=== PATIENT | male | born 1985 | race Caucasian/White ===

== ENCOUNTER 2016-06-27 16:17 | Emergency (ER) | payer OTHER ==
[2016-06-27 16:27] VITALS: BP 117/71; PULSE 84; RESP 18; TEMP 97.1
[2016-06-27] MEDS ORDERED: ACET/COD 300 MG/30 MG STARTER PACK 6 TAB BTL PO STA (16:36)
[2016-06-27] MEDS ORDERED: PENICILLIN VK 500MG STARTER 4 TAB BTL PO STA (16:36)
--- NOTE | 2016-06-27 16:41 | ED ---
ENT HPI - General Chief complaint: Dental/Oral Stated complaint: Tooth Ache Time Seen by Provider: 06/27/16 16:26 Source: patient, RN notes reviewed, old records reviewed Mode of arrival: ambulatory Limitations: no limitations - History of Present Illness Initial comments: Patient is a 30-year-old male with chief complaint of right lower tooth pain for approximately one week. Patient reports that he was eating steak one week ago when his back molar broke off. Tooth #31. Patient states that he's had a history of poor dentition. He states that he does not see a dentist regularly. Patient states that he was somewhat okay initially. He states that over the past 3 days his face has became more swollen and the pain is unmanageable Motrin Tylenol. Patient states that he tried to see a dentist today however they would not get him in. They recommended he come to be evaluated and get started on antibiotics for a dental abscess. Patient reports he's had intermittent fever. Denies any significant past medical history. She denies any difficulty opening and closing the jaw. Denies any trouble swallowing. Patient denies any recent fever, chills, shortness of breath, chest pain, back pain, abdominal pain, nausea vomiting, numbness or tingling, dysuria or hematuria, constipation or diarrhea, headaches or visual changes, or any other current symptoms - Related Data Previous Rx's Medication Instructions Recorded HYDROcodone/APAP 5-325MG [[place] 1 - 2 tab PO Q4H PRN #20 tab 06/27/16 5-325] Penicillin V Potassium [Pen Vee K] 500 mg PO QID #40 tab 06/27/16 Allergies Allergy/AdvReac Type Severity Reaction Status Date / Time No Known Allergies Allergy Verified 06/27/16 16:27 Review of Systems ROS Statement: Those systems with pertinent positive or pertinent negative responses have been documented in the HPI. ROS Other: All systems not noted in ROS Statement are negative. Past Medical History Past Medical History: No Reported History History of Any Multi-Drug Resistant Organisms: None Reported Past Surgical History: No Surgical Hx Reported Past Psychological History: No Psychological Hx Reported Smoking Status: Current every day smoker Past Alcohol Use History: None Reported Past Drug Use History: Marijuana General Exam - General Exam Comments Initial Comments: 30-year-old male. Patient doesn't appear to be in any acute distress. Limitations: no limitations General appearance: alert, in no apparent distress Head exam: Present: atraumatic, normocephalic, normal inspection Eye exam: Present: normal appearance, PERRL, EOMI. Absent: scleral icterus, conjunctival injection, periorbital swelling ENT exam: Present: normal exam, mucous membranes moist. Absent: normal oropharynx ( has exposed nerve root chipped tooth #31. Evidence of swelling erythema around the tooth. Patient has swelling over the cheek.) Neck exam: Present: normal inspection, lymphadenopathy (Tonsillar lymphadenopathy.) Respiratory exam: Present: normal lung sounds bilaterally. Absent: respiratory distress, wheezes, rales, rhonchi, stridor Cardiovascular Exam: Present: regular rate, normal rhythm, normal heart sounds. Absent: systolic murmur, diastolic murmur, rubs, gallop, clicks GI/Abdominal exam: Present: soft, normal bowel sounds. Absent: distended, tenderness, guarding, rebound, rigid Extremities exam: Present: normal inspection, full ROM, normal capillary refill. Absent: tenderness, pedal edema, joint swelling, calf tenderness Back exam: Present: normal inspection Neurological exam: Present: alert, oriented X3, CN II-XII intact Psychiatric exam: Present: normal affect, normal mood Skin exam: Present: warm, dry, intact, normal color. Absent: rash Course Vital Signs 06/27/16 16:26 Temperature 97.1 F L Pulse Rate 84 Respiratory 18 Rate Blood Pressure 117/71 O2 Sat by Pulse 98 Oximetry Medical Decision Making - Medical Decision Making Patient is a 30 year old male with one week of right lower dental pain. Patient has no fever at this time.Patient has exposed nerve root number 31, tonsillar lymphadenopathy, and redness and swelling over tooth. Patient will be started on penicillin and [place] for pain. Patient refused dental block at this time. I discussed close return parameters including severe swelling and worsening pain over the jaw. Patient reports he is following up with a dentist within the next 2-3 days to have the tooth removed. He just wants to start antibiotics. Patient agrees with treatment plan will comply. Return parameters were discussed. Disposition Clinical Impression: Pain, dental, Dental abscess Disposition: HOME SELF-CARE Condition: Good Instructions: Dental Abscess (ED) Additional Instructions: [facility] [address] [place] [address] [phone] (existing clients only) For new clients: [phone] 1st consult: $50 (includes Xrays) Usually 30% less then private dentist for visits after. [employer] Have to pay $50 for Xrays and rest is covered. [phone] Patient advised to complete entire antibiotic prescription. Return to the emergency department if any worsening signs or symptoms occur including unable to open and close jaw, or Severe swelling over the face. Prescriptions: HYDROcodone/APAP 5-325MG [[place] 5-325] 1 - 2 tab PO Q4H PRN #20 tab PRN Reason: Pain Penicillin V Potassium [Pen Vee K] 500 mg PO QID #40 tab Referrals: Jacki Vargas MD [STAFF PHYSICIAN] - 1-2 days Time of Disposition: 16:37
== END 2016-06-27 16:47 | disposition home or self-care (01) ==
LOC: EC 16:17
DX: K04.7 Periapical abscess without sinus (principal); F17.200 Nicotine dependence, unspecified, uncomplicated
CPT/HCPCS: 99283

== ENCOUNTER 2019-02-04 19:28 | Emergency (ER) | payer OTHER ==
[2019-02-04 19:39] VITALS: BP 156/91; PULSE 94; RESP 16; TEMP 97.9
[2019-02-04] MEDS ORDERED: ACET/COD 300 MG/30 MG STARTER PACK 6 TAB BTL PO STA (20:03)
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
== END 2019-02-04 20:12 | disposition home or self-care (01) ==
LOC: EC 19:28
DX: R20.2 Paresthesia of skin (principal); G89.29 Other chronic pain; M54.2 Cervicalgia; R20.0 Anesthesia of skin; F17.200 Nicotine dependence, unspecified, uncomplicated
CPT/HCPCS: 99283

== ENCOUNTER 2019-05-30 05:55 | Emergency (ER) | payer OTHER ==
[2019-05-30 06:01] VITALS: BP 170/89; PULSE 89; RESP 20; TEMP 97.9
[2019-05-30] MEDS ORDERED: ACET/COD 300 MG/30 MG STARTER PACK 6 TAB BTL PO STA (06:13)
[2019-05-30] MEDS ORDERED: HYDROcodone/APAP 5-325MG 1 EACH TAB PO STA (06:13)
--- NOTE | 2019-05-30 06:13 | ED ---
Skin/Abscess/FB HPI - General Chief complaint: Skin/Abscess/Foreign Body Stated complaint: Cyst/Boil on Neck Time Seen by Provider: 05/30/19 06:02 Source: patient, family, RN notes reviewed Mode of arrival: ambulatory Limitations: no limitations - History of Present Illness Initial comments: 33-year-old male presents emergency Department chief complaint of cyst on left posterior neck region. Patient states started last day. Patient states he had a small pimple-like structure states he tried to pop it multiple times. Patient states now painful, swollen. Patient denies any fevers or chills. Patient denies any headache, dizziness, chest pain or shortness of breath. - Related Data Previous Rx's Medication Instructions Recorded HYDROcodone/APAP 5-325MG [[place] 1 - 2 tab PO Q4H PRN #20 tab 06/27/16 5-325] Penicillin V Potassium [Pen Vee K] 500 mg PO QID #40 tab 06/27/16 Cephalexin [Keflex] 500 mg PO Q6HR #40 cap 05/30/19 Ibuprofen [Motrin] 600 mg PO Q8HR PRN #20 tab 05/30/19 Sulfamethox-Tmp 800-160Mg [Bactrim 1 each PO Q12HR #20 tab 05/30/19 Ds] Allergies Allergy/AdvReac Type Severity Reaction Status Date / Time No Known Allergies Allergy Verified 05/30/19 06:01 Review of Systems ROS Statement: Those systems with pertinent positive or pertinent negative responses have been documented in the HPI. ROS Other: All systems not noted in ROS Statement are negative. Past Medical History Past Medical History: No Reported History History of Any Multi-Drug Resistant Organisms: None Reported Past Surgical History: No Surgical Hx Reported Past Psychological History: No Psychological Hx Reported Smoking Status: Current every day smoker Past Alcohol Use History: None Reported Past Drug Use History: Marijuana General Exam Limitations: no limitations General appearance: alert, in no apparent distress Head exam: Present: atraumatic, normocephalic, normal inspection Eye exam: Present: normal appearance, PERRL, EOMI. Absent: scleral icterus, conjunctival injection, periorbital swelling ENT exam: Present: normal exam, normal oropharynx, mucous membranes moist, TM's normal bilaterally, normal external ear exam Neck exam: Present: full ROM. Absent: normal inspection (Firm nonfluctuant 1 cm abscess left posterior neck region), tenderness, meningismus, lymphadenopathy Respiratory exam: Present: normal lung sounds bilaterally. Absent: respiratory distress, wheezes, rales, rhonchi, stridor Cardiovascular Exam: Present: regular rate, normal rhythm, normal heart sounds. Absent: systolic murmur, diastolic murmur, rubs, gallop, clicks Course Vital Signs 05/30/19 05:57 Temperature 97.9 F Pulse Rate 89 Respiratory 20 Rate Blood Pressure 170/89 O2 Sat by Pulse 100 Oximetry Medical Decision Making - Medical Decision Making Patient has abscess that is nonfluctuant to left posterior neck region this appears to be related to ingrown hair this time. Patient was placed on advised warm compresses. Return parameters discussed. Disposition Clinical Impression: Neck abscess, Hair follicle infection Disposition: HOME SELF-CARE Condition: Stable Instructions (If sedation given, give patient instructions): Abscess (ED) Additional Instructions: Please return to the Emergency Department if symptoms worsen or any other concerns. Prescriptions: Sulfamethox-Tmp 800-160Mg [Bactrim Ds] 1 each PO Q12HR #20 tab Cephalexin [Keflex] 500 mg PO Q6HR #40 cap Ibuprofen [Motrin] 600 mg PO Q8HR PRN #20 tab PRN Reason: Pain Is patient prescribed a controlled substance at d/c from ED?: No Referrals: None,Stated [Primary Care Provider] - 1-2 days Time of Disposition: 06:12
== END 2019-05-30 06:26 | disposition home or self-care (01) ==
LOC: EC 05:55
DX: L02.11 Cutaneous abscess of neck (principal); L73.8 Other specified follicular disorders; F17.200 Nicotine dependence, unspecified, uncomplicated
CPT/HCPCS: 99283

== ENCOUNTER 2019-06-01 23:24 | Emergency (ER) | payer OTHER ==
[2019-06-01 23:30] VITALS: BP 122/87; PULSE 108; RESP 18; TEMP 97.5
[2019-06-02] MEDS ORDERED: oxyCODONE-APAP 7.5-325MG 1 EACH TAB PO STA (00:06)
--- NOTE | 2019-06-02 00:08 | ED ---
Skin/Abscess/FB HPI - General Chief complaint: Skin/Abscess/Foreign Body Stated complaint: Neck pain Time Seen by Provider: 06/01/19 23:34 Source: patient Mode of arrival: ambulatory Limitations: physical limitation - History of Present Illness Initial comments: 33-year-old male presents for recheck of abscess. Patient states approximately 100 hours ago he noticed a bump on the back of the left side of his neck. Patient states it has become more tender and painful. Patient states 2 days ago he presents emergency department when he was prescribed 2 antibiotics, he states that it does not seem to be helping. Patient denies any fevers, nightsweats. Patient states the location of the abscess causes pain when he moves neck. Patient denies pain of the neck bones, neck stiffness. Denies MRSA history. Patient states he has been taking keflex and bactrim for the past day. Patient has no other complaints. patient states that he could not tolerate the pain and thats why he presented to the ER, he states it has not really increased in size. Remaining ROS (-). Afebrile on arrival. - Related Data Previous Rx's Medication Instructions Recorded HYDROcodone/APAP 5-325MG [[place] 1 - 2 tab PO Q4H PRN #20 tab 06/27/16 5-325] Penicillin V Potassium [Pen Vee K] 500 mg PO QID #40 tab 06/27/16 Ibuprofen [Motrin] 600 mg PO Q8HR PRN #20 tab 05/30/19 Sulfamethox-Tmp 800-160Mg [Bactrim 1 each PO Q12HR #20 tab 05/30/19 Ds] HYDROcodone/APAP 5-325MG [[place] 1 tab PO Q6HR PRN 3 Days #12 tab 06/02/19 5-325] Allergies Allergy/AdvReac Type Severity Reaction Status Date / Time No Known Allergies Allergy Verified 06/01/19 23:31 Review of Systems ROS Statement: Those systems with pertinent positive or pertinent negative responses have been documented in the HPI. ROS Other: All systems not noted in ROS Statement are negative. Past Medical History Past Medical History: No Reported History History of Any Multi-Drug Resistant Organisms: None Reported Past Surgical History: No Surgical Hx Reported Past Psychological History: No Psychological Hx Reported Smoking Status: Current every day smoker Past Alcohol Use History: None Reported Past Drug Use History: Marijuana General Exam - General Exam Comments Initial Comments: General: The patient is awake and alert, in no distress, and does not appear acutely ill. Eye: Pupils are equal, round and reactive to light, extra-ocular movements are intact. No nystagmus. There is normal conjunctiva bilaterally. No signs of icterus. Ears, nose, mouth and throat: There are moist mucous membranes and no oral lesions. Neck: The neck is supple, there is no tenderness or JVD. on left side posterior neck there is a [id number] area of induration with small area of necrotic center. No significant surrounding redness, no spontaneous drainage. Musculoskeletal: Normal ROM, no tenderness. Strength 5/5. Sensation intact. Radial pulses equal bilaterally 2+. Neurological: A&O x 3. CN II-XII intact grossly, There are no obvious motor or sensory deficits. Coordination appears grossly intact. Speech is normal. Skin: Skin is warm and dry and no rashes or lesions are noted. Psychiatric: Cooperative, appropriate mood & affect, normal judgment. Limitations: physical limitation Course Vital Signs 06/01/19 23:26 Temperature 97.5 F L Pulse Rate 108 H Respiratory 18 Rate Blood Pressure 122/87 O2 Sat by Pulse 99 Oximetry Procedures - Incision & Drainage Consent Obtained: verbal consent Indication: abscess Site: neck Size (cm): 2 Anesthetic Used: lidocaine 1% Amount (mLs): 2 I&D Cleaning Method: Iodine Sterile Field Used?: No Scalpel Used: #11 Needle Aspiration Performed?: No Irrigation Performed?: No I&D Drainage Obtained: Blood Culture Obtained?: No Complications: pain Medical Decision Making - Medical Decision Making 33yo male presenting today for cc of neck abscess. I&D attempted no drainage. Mostly induration, Patient evaluated by Dr. Munoz who is agreeable that at this time area is indurated without purulent drainage. Patient given medications for pain management in the ER. Recommended warm compressions with continued antibiotics regime. Strict return parameters for increasing pain, fever, general mailase. Recommended surgical consultation. Patient agreeable to care plan and discharge at this time. Disposition Clinical Impression: Abscess Disposition: HOME SELF-CARE Condition: Good Instructions (If sedation given, give patient instructions): Abscess Incision and Drainage (ED), Cyst (ED) Additional Instructions: Please use medication as discussed. Please follow-up with family doctor in the next 2 days, and general surgery in next 2-3 days--call tomorrow to make appointment. Please return to emergency room if the symptoms increase or worsen or for any other concerns. Prescriptions: HYDROcodone/APAP 5-325MG [[place] 5-325] 1 tab PO Q6HR PRN 3 Days #12 tab PRN Reason: Pain Is patient prescribed a controlled substance at d/c from ED?: No Referrals: None,Stated [Primary Care Provider] - 1-2 days Dandre Platt MD [STAFF PHYSICIAN] - 1-2 days Time of Disposition: 00:07
== END 2019-06-02 00:38 | disposition home or self-care (01) ==
LOC: EC 23:24
DX: L02.11 Cutaneous abscess of neck (principal); F17.200 Nicotine dependence, unspecified, uncomplicated
CPT/HCPCS: 10060; 99283

== ENCOUNTER 2019-06-12 19:05 | Emergency (ER) | payer OTHER ==
[2019-06-12 19:12] VITALS: BP 149/90; PULSE 100; RESP 20; TEMP 98
[2019-06-12] MEDS ORDERED: ETODOLAC 400 MG TAB PO STA (20:00)
--- NOTE | 2019-06-12 20:11 | ED ---
General Adult HPI - General Chief complaint: Skin/Abscess/Foreign Body Stated complaint: Neck pain Time Seen by Provider: 06/12/19 19:23 Source: patient, RN notes reviewed, old records reviewed Mode of arrival: ambulatory Limitations: no limitations - History of Present Illness Initial comments: 33-year-old male patient with past history of hypertension presents to ED for evaluation of possible spider bite on neck. Patient reports that on 05/29 which is bit by a spider. Both on his neck and on his leg. Patient was seen emergency department 2 times on 05/29 and 05/31 at that time there is no mention of a spider bite. Patient does report that he believes he could have been by a brown recluse. Patient had incision and drainage performed on 05/31. Since then he states he has had purulent drainage. Reports that it does appear to be improving. However today patient woke up with pain around the area of the potential bite or abscess. Denies any fevers, denies any other complaints. Systemic: Pt denies fatigue, fever/chills, rash. Pt denies weakness, night sweats, weight loss. Neuro: Pt denies headache, visual disturbances, syncope or pre-syncope. HEENT: Pt denies ocular discharge or irritation, otalgia, rhinorrhea, pharyngitis or notable lymphadenopathy. Cardiopulmonary: Pt denies chest pain, SOB, heart palpitations, dyspnea on exertion. Abdominal/GI: Pt denies abdominal pain, n/v/d. : Pt denies dysuria, burning w/ urination, frequency/urgency. Denies new onset urinary or bowel incontinence. MSK: Pt denies myalgia, loss of strength or function in extremities. Neuro: Pt denies new onset weakness, paresthesias. - Related Data Previous Rx's Medication Instructions Recorded HYDROcodone/APAP 5-325MG [[place] 1 - 2 tab PO Q4H PRN #20 tab 06/27/16 5-325] Penicillin V Potassium [Pen Vee K] 500 mg PO QID #40 tab 06/27/16 Ibuprofen [Motrin] 600 mg PO Q8HR PRN #20 tab 05/30/19 Sulfamethox-Tmp 800-160Mg [Bactrim 1 each PO Q12HR #20 tab 05/30/19 Ds] HYDROcodone/APAP 5-325MG [[place] 1 tab PO Q6HR PRN 3 Days #12 tab 06/02/19 5-325] Cephalexin [Keflex] 500 mg PO Q6HR 7 Days #28 cap 06/12/19 Allergies Allergy/AdvReac Type Severity Reaction Status Date / Time No Known Allergies Allergy Verified 06/12/19 19:12 Review of Systems ROS Statement: Those systems with pertinent positive or pertinent negative responses have been documented in the HPI. ROS Other: All systems not noted in ROS Statement are negative. Past Medical History Past Medical History: No Reported History History of Any Multi-Drug Resistant Organisms: None Reported Past Surgical History: No Surgical Hx Reported Past Psychological History: No Psychological Hx Reported Smoking Status: Current every day smoker Past Alcohol Use History: None Reported Past Drug Use History: Marijuana General Exam - General Exam Comments Initial Comments: Constitutional: NAD, AOX3, Pt has pleasant affect. HEENT: NC/AT, trachea midline, neck supple, no lymphadenopathy. Posterior pharynx non erythematous, without exudates. External ears appear normal, without discharge. Mucous membranes moist. Eyes PERRLA, EOM intact. There is no scleral icterus. No pallor noted. Cardiopulmonary: RRR, no murmurs, rubs or gallops, no JVD noted. Lungs CTAB in anterior and posterior villa. No peripheral edema. Neuro: CN II-XII grossly intact. No nuchal rigidity. No raccon eyes, no estes sign, no hemotympanum. No cervical spinal tenderness. Kernig's and Brudzinski's is negative. MSK: 1 x 1 cm lesion, 1cm deep left posterior cervical region. Rimmed with very mild erythema, or fluctuance or drainage is noted. No crepitus. 1 cm hard crusted lesion right anterior tibial region. Rimmed with very mild erythema, or fluctuance or drainage is noted. No crepitus. No erythema or fluctuance discharge noted. Full active ROM in upper and lower extremities, 5/5 stregnth. Limitations: no limitations Course Vital Signs 06/12/19 19:08 Temperature 98 F Pulse Rate 100 Respiratory 20 Rate Blood Pressure 149/90 O2 Sat by Pulse 98 Oximetry Medical Decision Making - Medical Decision Making 33-year-old male patient with past history of hypertension presents to ED for evaluation of possible spider bite on neck. Patient reports that on 05/29 which is bit by a spider. Both on his neck and on his leg. Patient was seen emergency department 2 times on 05/29 and 05/31 at that time there is no mention of a spider bite. Patient does report that he believes he could have been by a brown recluse. Patient had incision and drainage performed on 05/31. Since then he states he has had purulent drainage. Reports that it does appear to be improving. However today patient woke up with pain around the area of the potential bite or abscess. Denies any fevers, denies any other complaints.Pt VSS, afebrile. Physical exam displayed: 1 x 1 cm lesion, 1cm deep left posterior cervical region. No erythema or fluctuance or drainage is noted. No crepitus. 1 cm hard crusted lesion right anterior tibial region. Patient will be continued on Keflex will be prescribed one additional week. Will be given outpatient referral for a general surgeon. Follow with primary care provider tomorrow. Will return to ER if condition worsens in any way. Case discussed and pt seen by Dr. De Oliveira. Disposition Clinical Impression: Chronic wound of extremity, Skin lesion of neck Disposition: HOME SELF-CARE Condition: Stable Instructions (If sedation given, give patient instructions): Chronic Wound Care (ED) Additional Instructions: Take antibiotics as directed. Follow-up with primary care provider as well as g eneral surgeon consult tomorrow. Use Tylenol and Motrin as needed for pain. Keep area clean and dry. Return to ER if condition worsens, if you start developing fevers or any other concerning symptoms develop. Prescriptions: Cephalexin [Keflex] 500 mg PO Q6HR 7 Days #28 cap Is patient prescribed a controlled substance at d/c from ED?: No Referrals: None,Stated [Primary Care Provider] - 1-2 days [facility] [NON[facility]] - 1-2 days Silas Sabillon MD [Medical Doctor] - 1-2 days
== END 2019-06-12 20:32 | disposition home or self-care (01) ==
LOC: EC 19:05
DX: S81.801A Unspecified open wound, right lower leg, initial encounter (principal); L98.9 Disorder of the skin and subcutaneous tissue, unspecified; F17.200 Nicotine dependence, unspecified, uncomplicated; W57.XXXA Bitten or stung by nonvenomous insect and other nonvenomous arthropods, initial encounter
CPT/HCPCS: 99283

== ENCOUNTER 2019-09-22 20:15 | Emergency (ER) | payer OTHER ==
[2019-09-22 20:20] VITALS: BP 158/107; PULSE 100; RESP 16; TEMP 98.4
[2019-09-22] MEDS ORDERED: SULFAMETH-TMP DS STARTER PACK 2 TAB BTL PO STA (20:44)
[2019-09-22] MEDS ORDERED: CEPHALEXIN 500MG STARTER PACK 4 CAP BTL PO STA (20:44)
--- NOTE | 2019-09-22 20:44 | ED ---
General Adult HPI - General Chief complaint: Skin/Abscess/Foreign Body Stated complaint: Poss Bug Bite Time Seen by Provider: 09/22/19 20:24 Source: patient, RN notes reviewed Mode of arrival: ambulatory - History of Present Illness Initial comments: 34-year-old male without any significant past medical history aside from hypertension presents to the emergency department for abscess on the abdomen. Patient states he started have a lump on his abdomen and now there is redness around it. Patient states he had a similar problem earlier this year with an abscess on his neck. Patient unknown if he has a history of MRSA. Patient states his abscess started about 3 days ago. States it is draining. No fevers or chills. No abdominal pain.Patient has no other complaints at this time including shortness of breath, chest pain, abdominal pain, nausea or vomiting, headache, or visual changes. - Related Data Previous Rx's Medication Instructions Recorded HYDROcodone/APAP 5-325MG [[place] 1 - 2 tab PO Q4H PRN #20 tab 06/27/16 5-325] Penicillin V Potassium [Pen Vee K] 500 mg PO QID #40 tab 06/27/16 Ibuprofen [Motrin] 600 mg PO Q8HR PRN #20 tab 05/30/19 Sulfamethox-Tmp 800-160Mg [Bactrim 1 each PO Q12HR #20 tab 05/30/19 Ds] HYDROcodone/APAP 5-325MG [[place] 1 tab PO Q6HR PRN 3 Days #12 tab 06/02/19 5-325] Acetaminophen Tab [Tylenol Tab] 500 mg PO Q6H PRN #20 tablet 06/12/19 Cephalexin [Keflex] 500 mg PO Q6HR 7 Days #28 cap 06/12/19 Ibuprofen [Motrin] 600 mg PO Q6HR PRN #20 day 06/12/19 Cephalexin [Keflex] 500 mg PO QID 10 Days #40 cap 09/22/19 Sulfamethox-Tmp 800-160Mg [Bactrim 1 tab PO Q12HR #20 tab 09/22/19 DS 800-160 mg] Allergies Allergy/AdvReac Type Severity Reaction Status Date / Time No Known Allergies Allergy Verified 09/22/19 20:20 Review of Systems ROS Statement: Those systems with pertinent positive or pertinent negative responses have been documented in the HPI. ROS Other: All systems not noted in ROS Statement are negative. Past Medical History Past Medical History: Hypertension History of Any Multi-Drug Resistant Organisms: None Reported Past Surgical History: No Surgical Hx Reported Additional Past Surgical History / Comment(s): Rhinoplasty Past Psychological History: No Psychological Hx Reported Smoking Status: Current every day smoker Past Alcohol Use History: None Reported Past Drug Use History: Marijuana General Exam General appearance: alert, in no apparent distress Head exam: Present: atraumatic, normocephalic, normal inspection Eye exam: Present: normal appearance, PERRL, EOMI. Absent: scleral icterus, conjunctival injection, periorbital swelling ENT exam: Present: normal exam, mucous membranes moist Neck exam: Present: normal inspection. Absent: tenderness, meningismus, lymphadenopathy Respiratory exam: Present: normal lung sounds bilaterally. Absent: respiratory distress, wheezes, rales, rhonchi, stridor Cardiovascular Exam: Present: regular rate, normal rhythm, normal heart sounds. Absent: systolic murmur, diastolic murmur, rubs, gallop, clicks GI/Abdominal exam: Present: soft, normal bowel sounds, other (Patient has a small 1 cm x 1 cm abscess noted to the right of the umbilicus that is currently draining. He has no abdominal tenderness. He does have surrounding erythema about 6 cm x 6 cm consistent with cellulitis.). Absent: distended, tenderness, guarding, rebound, rigid Course Vital Signs 09/22/19 20:16 Temperature 98.4 F Pulse Rate 100 Respiratory 16 Rate Blood Pressure 158/107 O2 Sat by Pulse 99 Oximetry Medical Decision Making - Medical Decision Making Abscess is already draining, there is no fluctuant area for additional incision point. He will continue to do warm compresses. He will be treated with Keflex and Bactrim to cover for possible MRSA as patient has had a history of abscesses. Patient will follow-up with his doctor. He will return here for any worsening symptoms which were discussed in depth with him. Disposition Clinical Impression: Abscess Disposition: HOME SELF-CARE Condition: Good Instructions (If sedation given, give patient instructions): Cellulitis (ED), Abscess (ED) Additional Instructions: Please take antibiotics as directed. Try warm compresses several times daily. Monitor for worsening symptoms. Symptoms may worsen a small amount in the next 24 hours but if they worsen significantly return to the emergency room. If it is not improving after 24-48 hours of antibiotics return to the emergency room. Otherwise follow-up with primary care in 1-2 days for a recheck. Prescriptions: Sulfamethox-Tmp 800-160Mg [Bactrim DS 800-160 mg] 1 tab PO Q12HR #20 tab Cephalexin [Keflex] 500 mg PO QID 10 Days #40 cap Is patient prescribed a controlled substance at d/c from ED?: No Referrals: Johnnie Sena MD [STAFF PHYSICIAN] - 1-2 days Time of Disposition: 20:43
== END 2019-09-22 20:58 | disposition home or self-care (01) ==
LOC: EC 20:15
DX: L02.211 Cutaneous abscess of abdominal wall (principal); F17.200 Nicotine dependence, unspecified, uncomplicated
CPT/HCPCS: 99283

== ENCOUNTER 2019-12-11 15:53 | Emergency (ER) | payer OTHER ==
[2019-12-11 16:12] VITALS: RESP 18
[2019-12-11] MEDS ORDERED: HYDROcodone/APAP 7.5-325MG 1 EACH TAB PO ONE (16:35)
[2019-12-11 16:59] LABS: Basophils # (A) 0.1 k/uL (0-0.2); Basophils % (A) 1 %; Eosinophils # (A) 0.6 k/uL (0-0.7); Eosinophils % (A) 5 %; HGB 17.4 gm/dL (13.0-17.5); Lymphocytes # (A) 2.9 k/uL (1.0-4.8); Lymphocytes % (A) 24 %; MCH 34.2 pg (25.0-35.0); MCHC 35.5 g/dL (31.0-37.0); MCV 96.6 fL (80.0-100.0); Mean Platelet Volume 6.2; Monocytes # (A) 0.7 k/uL (0-1.0); Monocytes % (A) 6 %; Neutrophils # (A) 7.3 k/uL (1.3-7.7); Neutrophils % (A) 62 %; Platelet Count 448 k/uL (150-450); RBC 5.07 m/uL (4.30-5.90); RDW 11.9 % (11.5-15.5); WBC 11.9 k/uL (3.8-10.6)
[2019-12-11 17:07] LABS: ALT 14 U/L (4-49); AST 30 U/L (17-59); African American GFR (CKD) >90 (>60 ml/min/1.73 sqM); Albumin 4.8 g/dL (3.5-5.0); Alkaline Phosphatase 98 U/L (38-126); Anion Gap 9 mmol/L; Blood Urea Nitrogen 20 mg/dL (9-20); Calcium 9.8 mg/dL (8.4-10.2); Carbon Dioxide 26 mmol/L (22-30); Chloride 104 mmol/L (98-107); Glucose 97 mg/dL (74-99); Non-African American GFR(CKD) 78 (>60 ml/min/1.73 sqM); Potassium 4.3 mmol/L (3.5-5.1); Sodium 139 mmol/L (137-145); Total Bilirubin 0.6 mg/dL (0.2-1.3); Total Protein 7.9 g/dL (6.3-8.2)
--- NOTE | 2019-12-11 17:17 | US ---
EXAMINATION TYPE: US extremity nonvasc mass RT DATE OF EXAM: 12/11/2019 COMPARISON: NONE CLINICAL HISTORY: right wrist, ensure no vascular communication. redness and lump right wrist Scanned right wrist within area of concern, complex anechoic area = 1.0 x 0.5 x 0.9cm IMPRESSION: There is irregular somewhat oval-shaped hypoechoic complex fluid collection in the area o f concern on the right wrist. This could be an abscess or hematoma.
[2019-12-11] MEDS ORDERED: LIDOCAINE 1% INJ 10MG/ML (20 ML MDV) SQ ONE (17:34)
[2019-12-11] MEDS ORDERED: CLINDAMYCIN 150 MG CAP PO STA (17:48)
[2019-12-11 17:57] VITALS: BP 152/105; PULSE 87; TEMP 98
--- NOTE | 2019-12-11 17:57 | ED ---
Skin/Abscess/FB HPI - General Chief complaint: Skin/Abscess/Foreign Body Stated complaint: abcess on right arm Time Seen by Provider: 12/11/19 16:30 Source: patient Mode of arrival: ambulatory Limitations: no limitations - History of Present Illness Initial comments: 34-year-old male presenting today for chief complaint of right forearm abscess, possible infection of tattoo site. Patient states that the area around the tattoo is red and hurts to touch. He denies any drainage. Patient states his scabbing. Patient states that he does also have this raised bump on the right forearm he states that it has been draining somewhat he was concerned of a bscess. He states that he was poked by something. He denies IV drug use. Patient denies known history of MRSA. Patient denies fever, chills, general malaise or additional complaints pt appears well on arrival nontoxic. - Related Data Previous Rx's Medication Instructions Recorded HYDROcodone/APAP 5-325MG [[place] 1 - 2 tab PO Q4H PRN #20 tab 06/27/16 5-325] Penicillin V Potassium [Pen Vee K] 500 mg PO QID #40 tab 06/27/16 Ibuprofen [Motrin] 600 mg PO Q8HR PRN #20 tab 05/30/19 Sulfamethox-Tmp 800-160Mg [Bactrim 1 each PO Q12HR #20 tab 05/30/19 Ds] HYDROcodone/APAP 5-325MG [[place] 1 tab PO Q6HR PRN 3 Days #12 tab 06/02/19 5-325] Acetaminophen Tab [Tylenol Tab] 500 mg PO Q6H PRN #20 tablet 06/12/19 Cephalexin [Keflex] 500 mg PO Q6HR 7 Days #28 cap 06/12/19 Ibuprofen [Motrin] 600 mg PO Q6HR PRN #20 day 06/12/19 Cephalexin [Keflex] 500 mg PO QID 10 Days #40 cap 09/22/19 Sulfamethox-Tmp 800-160Mg [Bactrim 1 tab PO Q12HR #20 tab 09/22/19 DS 800-160 mg] Cephalexin [Keflex] 500 mg PO Q6HR 7 Days #28 cap 12/11/19 Sulfamethox-Tmp 800-160Mg [Bactrim 1 tab PO Q12HR 7 Days #14 tab 12/11/19 DS 800-160 mg] Allergies Allergy/AdvReac Type Severity Reaction Status Date / Time No Known Allergies Allergy Verified 09/22/19 20:20 Review of Systems ROS Statement: Those systems with pertinent positive or pertinent negative responses have been documented in the HPI. ROS Other: All systems not noted in ROS Statement are negative. Past Medical History Past Medical History: Hypertension History of Any Multi-Drug Resistant Organisms: None Reported Past Surgical History: No Surgical Hx Reported Additional Past Surgical History / Comment(s): Rhinoplasty Past Psychological History: No Psychological Hx Reported Smoking Status: Current every day smoker Past Alcohol Use History: None Reported Past Drug Use History: Marijuana General Exam - General Exam Comments Initial Comments: General: The patient is awake and alert, in no distress Eye: +3 mm pupils are equal, round and reactive to light, extra-ocular movements are intact. No nystagmus. There is normal conjunctiva bilaterally. No signs of icterus. Ears, nose, mouth and throat: There are moist mucous membranes and no oral lesions. Neck: The neck is supple, there is no tenderness or JVD. Cardiovascular: There is a regular rate and rhythm. No murmur, rub or gallop is appreciated. Respiratory: Lungs are clear to auscultation, respirations are non-labored, breath sounds are equal. No wheezes, stridor, rales, or rhonchi. Gastrointestinal: Soft, non-distended, non-tender abdomen without masses or organomegaly noted. There is no rebound or guarding present. Musculoskeletal: Normal ROM, no tenderness. Strength 5/5. Sensation intact. Radial pulses equal bilaterally 2+. Neurological: A&O x 3. CN II-XII intact grossly, There are no obvious motor or sensory deficits. Coordination appears grossly intact. Speech is normal. Skin: Skin is warm and dry and no rashes.2x1.5 raised red tender area of ulnar aspect of the right side of distal forearm, small area of center that appears open no acute drainage. Tattoo of the right lower leg, redness, scabbing, no drainage, blistering Psychiatric: Cooperative, appropriate mood & affect, normal judgment. Limitations: no limitations Course Vital Signs 12/11/19 12/11/19 16:06 17:56 Temperature 99.0 F 98.0 F Pulse Rate 114 H 87 Respiratory 18 18 Rate Blood Pressure 139/92 152/105 O2 Sat by Pulse 99 98 Oximetry Medical Decision Making - Medical Decision Making refused I &D although i discussed that the infection would most likely worsening without it as this is abscess and that is the treatment. pt states that he would like to trial antibiotics. Patient was on clindamycin taking his previous old a ntibiotics for the past 2 days he states that he does not believe is working patient was switched from clindamycin to Keflex and Bactrim. Patient is to return for worsening pain swelling redness fevers chills general malaise. Patient cellulitis of the tattoo site appears very mild evidence of abscess in that area. Patient case discussed attending provider Dr. Carrasco who is agreeable to care plan. - Lab Data Result diagrams: 12/11/19 16:47 12/11/19 16:47 Lab Results 12/11/19 12/11/19 12/11/19 Range/Units 16:47 16:47 16:47 WBC 11.9 H (3.8-10.6) k/uL RBC 5.07 (4.30-5.90) m/uL Hgb 17.4 (13.0-17.5) gm/dL Hct 49.0 (39.0-53.0) % MCV 96.6 (80.0-100.0) fL MCH 34.2 (25.0-35.0) pg MCHC 35.5 (31.0-37.0) g/dL RDW 11.9 (11.5-15.5) % Plt Count 448 (150-450) k/uL Neutrophils % 62 % Lymphocytes % 24 % Monocytes % 6 % Eosinophils % 5 % Basophils % 1 % Neutrophils # 7.3 (1.3-7.7) k/uL Lymphocytes # 2.9 (1.0-4.8) k/uL Monocytes # 0.7 (0-1.0) k/uL Eosinophils # 0.6 (0-0.7) k/uL Basophils # 0.1 (0-0.2) k/uL Sodium 139 (137-145) mmol/L Potassium 4.3 (3.5-5.1) mmol/L Chloride 104 (98-107) mmol/L Carbon Dioxide 26 (22-30) mmol/L Anion Gap 9 mmol/L BUN 20 (9-20) mg/dL Creatinine 1.19 (0.66-1.25) mg/dL Est GFR (CKD-EPI)AfAm >90 (>60 ml/min/1.73 sqM) Est GFR (CKD-EPI)NonAf 78 (>60 ml/min/1.73 sqM) Glucose 97 (74-99) mg/dL Plasma Lactic Acid Cory 0.9 (0.7-2.0) mmol/L Calcium 9.8 (8.4-10.2) mg/dL Total Bilirubin 0.6 (0.2-1.3) mg/dL AST 30 (17-59) U/L ALT 14 (4-49) U/L Alkaline Phosphatase 98 (38-126) U/L Total Protein 7.9 (6.3-8.2) g/dL Albumin 4.8 (3.5-5.0) g/dL Disposition Clinical Impression: Abscess, Cellulitis Disposition: HOME SELF-CARE Condition: Good Instructions (If sedation given, give patient instructions): Cellulitis (ED), Abscess (ED) Additional Instructions: Please use medication as discussed. Please follow-up with family doctor in the next 2 days. Please return to emergency room if the symptoms increase or worsen or for any other concerns. Prescriptions: Sulfamethox-Tmp 800-160Mg [Bactrim DS 800-160 mg] 1 tab PO Q12HR 7 Days #14 tab Cephalexin [Keflex] 500 mg PO Q6HR 7 Days #28 cap Is patient prescribed a controlled substance at d/c from ED?: No Referrals: None,Stated [Primary Care Provider] - 1-2 days Time of Disposition: 17:57
[2019-12-11] MEDS ORDERED: SULFAMETH-TMP DS STARTER PACK 2 TAB BTL PO STA (18:07)
[2019-12-11] MEDS ORDERED: CEPHALEXIN 500MG STARTER PACK 4 CAP BTL PO STA (18:07)
== END 2019-12-11 18:14 | disposition home or self-care (01) ==
LOC: EC 15:53
DX: L02.413 Cutaneous abscess of right upper limb (principal); L03.113 Cellulitis of right upper limb; F17.200 Nicotine dependence, unspecified, uncomplicated
CPT/HCPCS: 36415; 80053; 83605; 85025; 87040; 99283

== ENCOUNTER 2020-03-05 01:15 | Emergency (ER) | payer OTHER ==
[2020-03-05 01:21] VITALS: BP 154/97; PULSE 109; RESP 18; TEMP 98.5
[2020-03-05] MEDS ORDERED: LIDOCAINE 1%-EPI 1:100,000 20 ML VIAL SQ STA (01:50)
--- NOTE | 2020-03-05 01:53 | ED ---
Skin/Abscess/FB HPI - General Chief complaint: Skin/Abscess/Foreign Body Stated complaint: RT leg pain Time Seen by Provider: 03/05/20 01:44 Source: patient Mode of arrival: ambulatory Limitations: no limitations - History of Present Illness Initial comments: 34-year-old male presenting to the emergency department with a chief complaint of leg infection. Patient states several days ago he was working outside when a winch hit him on the right lower leg. Patient reports it was some ecchymosis in the region and now he has developed a localized infection to the anterior aspect of the right lower extremity. Patient states that it is tender to palpation and he has noticed some discharge yesterday but not today. Denies any night sweats or chills. States he has taken 6 tablets of 150 mg of clindamycin that was prescribed to him quite some time ago for a different reason. States his tetanus is up-to-date. Denies history of MRSA. - Related Data Previous Rx's Medication Instructions Recorded HYDROcodone/APAP 5-325MG [[place] 1 - 2 tab PO Q4H PRN #20 tab 06/27/16 5-325] Penicillin V Potassium [Pen Vee K] 500 mg PO QID #40 tab 06/27/16 Ibuprofen [Motrin] 600 mg PO Q8HR PRN #20 tab 05/30/19 Sulfamethox-Tmp 800-160Mg [Bactrim 1 each PO Q12HR #20 tab 05/30/19 Ds] HYDROcodone/APAP 5-325MG [[place] 1 tab PO Q6HR PRN 3 Days #12 tab 06/02/19 5-325] Acetaminophen Tab [Tylenol Tab] 500 mg PO Q6H PRN #20 tablet 06/12/19 Cephalexin [Keflex] 500 mg PO Q6HR 7 Days #28 cap 06/12/19 Ibuprofen [Motrin] 600 mg PO Q6HR PRN #20 day 06/12/19 Cephalexin [Keflex] 500 mg PO QID 10 Days #40 cap 09/22/19 Sulfamethox-Tmp 800-160Mg [Bactrim 1 tab PO Q12HR #20 tab 09/22/19 DS 800-160 mg] Cephalexin [Keflex] 500 mg PO Q6HR 7 Days #28 cap 12/11/19 Sulfamethox-Tmp 800-160Mg [Bactrim 1 tab PO Q12HR 7 Days #14 tab 12/11/19 DS 800-160 mg] Clindamycin [Cleocin] 150 mg PO Q6H #40 capsule 03/05/20 Allergies Allergy/AdvReac Type Severity Reaction Status Date / Time No Known Allergies Allergy Verified 03/05/20 01:21 Review of Systems ROS Statement: Those systems with pertinent positive or pertinent negative responses have been documented in the HPI. ROS Other: All systems not noted in ROS Statement are negative. Past Medical History Past Medical History: Hypertension History of Any Multi-Drug Resistant Organisms: None Reported Past Surgical History: No Surgical Hx Reported Additional Past Surgical History / Comment(s): Rhinoplasty Past Psychological History: No Psychological Hx Reported Smoking Status: Current every day smoker Past Alcohol Use History: None Reported Past Drug Use History: Marijuana General Exam Limitations: no limitations General appearance: alert, in no apparent distress Head exam: Present: atraumatic, normocephalic, normal inspection Eye exam: Present: normal appearance, PERRL, EOMI Pupils: Present: normal accommodation ENT exam: Present: normal exam, normal oropharynx, mucous membranes moist, TM's normal bilaterally, normal external ear exam Neck exam: Present: normal inspection, full ROM. Absent: tenderness Respiratory exam: Present: normal lung sounds bilaterally. Absent: respiratory distress, wheezes Cardiovascular Exam: Present: regular rate, normal rhythm, normal heart sounds Extremities exam: Present: normal inspection (Abscess noted on the anterior aspect of her right lower leg. 2 cm of fluctuance with about 4 cm of induration.), full ROM, tenderness (Tenderness to palpation at abscess), normal capillary refill, other (Palpable DP and PT). Absent: pedal edema, joint swelling, calf tenderness Back exam: Present: normal inspection, full ROM. Absent: tenderness, CVA tenderness (R), CVA tenderness (L) Neurological exam: Present: alert, oriented X3, normal gait Psychiatric exam: Present: normal affect, normal mood Skin exam: Present: warm, dry, intact, normal color Course Vital Signs 03/05/20 01:19 Temperature 98.5 F Pulse Rate 109 H Respiratory 18 Rate Blood Pressure 154/97 O2 Sat by Pulse 98 Oximetry Procedures - Incision & Drainage Consent Obtained: verbal consent Indication: Abscess Site: lower extremity Size (cm): 2 Anesthetic Used: lidocaine 1%, with epi Amount (mLs): 1 I&D Cleaning Method: Alcohol Wipe Sterile Field Used?: No Scalpel Used: #11 Needle Aspiration Performed?: No Irrigation Performed?: No I&D Drainage Obtained: Pus, Blood Culture Obtained?: No Complications: pain, bleeding Patient Tolerated Procedure: well, no complications Medical Decision Making - Medical Decision Making 34-year-old male presenting to emergency Department with a chief complaint of a leg infection. Abscess noted in the right lower extremity. Incision and drainage performed. I was able to remove pus and blood. Wound care instructions given. Patient has already been taking clindamycin. He will be continued for the full course of antibiotic. Return parameters discussed with patient was understanding and agreeable. Case discussed with physician. Disposition Clinical Impression: Abscess Disposition: HOME SELF-CARE Condition: Stable Instructions (If sedation given, give patient instructions): Abscess Incision and Drainage (ED), Abscess (ED) Additional Instructions: Take prescribed medication as directed. Return to emergency department if symptoms worsen. Prescriptions: Clindamycin [Cleocin] 150 mg PO Q6H #40 capsule Is patient prescribed a controlled substance at d/c from ED?: No Referrals: None,Stated [Primary Care Provider] - 1-2 days Time of Disposition: 02:15
[2020-03-05] MEDS ORDERED: CLINDAMYCIN 150 MG CAP PO STA (02:09)
== END 2020-03-05 02:20 | disposition home or self-care (01) ==
LOC: EC 01:15
DX: L02.415 Cutaneous abscess of right lower limb (principal); F17.200 Nicotine dependence, unspecified, uncomplicated
CPT/HCPCS: 10060; 99283